=== PATIENT | female | born 1930 | race Caucasian/White ===

== ENCOUNTER → 2017-11-29 | Outpatient (CLI) | payer MEDICARE ==
[2017-11-29 18:09] LABS: C REACTIVE PROTEIN QUANTITATIV < 0.30 MG/DL (0.00-0.30)
[2017-11-29 18:26] LABS: PLATELET COUNT, AUTOMATED 268 10^3/uL (150-450)
[2017-11-29 18:53] LABS: ERYTHROCYTE SEDIMENTATION RATE 19 mm/hr (0-42)
== END ==
LOC: M LAB 17:16
DX: G43.819 Other migraine, intractable, without status migrainosus (principal); M31.6 Other giant cell arteritis
CPT/HCPCS: 86140